=== PATIENT | male | born 1980 | race African-American/Black ===

== ENCOUNTER 2024-05-05 18:14 | Inpatient (IN) | payer MEDICAID, OTHER ==
[~2024-05-05] VITALS: Ht 175.3 cm; Wt 72.3 kg
[~2024-05-05 18:14] MED LIST: CHOL100018 PO; DIVA-112 PO; NICO14T TD; OLAN10TA74 PO
[2024-05-05 21:07] VITALS: BP 128/72; PULSE 72; RESP 18; TEMP 98.2; O2SAT 98
[2024-05-05] MEDS ORDERED: PNEUMOCOCCAL VACCINE POLYVALENT 0.5 ML SYRINGE [PPSV23] IM. ONE (21:30)
[2024-05-06 08:17] VITALS: BP 136/70; PULSE 60; RESP 18; TEMP 97.9; O2SAT 100
[2024-05-06] MEDS ORDERED: CloNIDine HCL 0.1 MG TABLET PO PRN (09:30)
[2024-05-06] MEDS ORDERED: IBUPROFEN 400 MG TABLET PO PRN (09:30)
[2024-05-06] MEDS ORDERED: MAGNESIUM HYDROXIDE SUSPENSION 30 ML UDCUP PO PRN (09:30)
[2024-05-06] MEDS ORDERED: ACETAMINOPHEN 325 MG TABLET PO PRN (09:30)
[2024-05-06] MEDS ORDERED: GuaiFENesin/D-METHORPHAN [SUGAR-FREE] 200-20MG/10 ML SYRUP UDCUP PO PRN (09:30)
[2024-05-06] MEDS ORDERED: ONDANSETRON 4 MG TABLET PO PRN (09:30)
[2024-05-06] MEDS ORDERED: NICOTINE 14 MG/24 HOUR PATCH TD PRN (09:30)
[2024-05-06] MEDS ORDERED: DOCUSATE SODIUM 100 MG CAPSULE PO PRN (09:30)
[2024-05-06] MEDS ORDERED: ALBUTEROL SULFATE HFA 90 MCG/PUFF 8 GM INHALER IH PRN (09:30)
[2024-05-06] MEDS ORDERED: LOPERAMIDE HCL 2 MG CAPSULE PO PRN (09:30)
[2024-05-06] MEDS ORDERED: PETROLATUM,WHITE 28 GM JELLY TP PRN (09:30)
[2024-05-06] MEDS: BACITRACIN 28 GM OINTMENT TP SCH (12:20)
[2024-05-06] MEDS: OLANZapine 10 MG TABLET PO SCH (20:03)
[2024-05-06] MEDS: DIVALPROEX SODIUM 500 MG DR TABLET PO SCH (20:03)
[2024-05-06 20:06] VITALS: BP 123/72; PULSE 75; RESP 16; TEMP 98.6; O2SAT 99
[2024-05-07 08:57] VITALS: BP 108/73; PULSE 68; RESP 13; TEMP 96.4; O2SAT 100
[2024-05-07 20:04] VITALS: BP 100/60; PULSE 68; RESP 17; TEMP 97.8; O2SAT 97
[2024-05-08 08:04] VITALS: BP 137/74; PULSE 62; RESP 16; TEMP 97.9; O2SAT 100
[2024-05-08 09:27] LABS: APPEARANCE,URINE CLEAR (CLEAR); BILIRUBIN,URINE NEGATIVE (NEGATIVE); COLOR,URINE LIGHT YELLOW (YELLOW); GLUCOSE, URINE (UA) NEGATIVE (NEGATIVE); KETONES,URINE NEGATIVE (NEGATIVE); LEUKOCYTE ESTERASE ,URINE NEGATIVE (NEGATIVE); NITRATE,URINE NEGATIVE (NEGATIVE); OCCULT BLOOD,URINE NEGATIVE (NEGATIVE); PROTEIN,URINE NEGATIVE (NEGATIVE); SPECIFIC GRAVITIY, URINE 1.013 (1.003-1.030); UROBILINOGEN,URINE <=1.0 mg/dL (<=1.0)
[2024-05-08 09:58] LABS: ALCOHOL, URINE DRUG SCREEN NEGATIVE (NEGATIVE); AMPHET/METH SCREEN,URINE NEGATIVE (NEGATIVE); BARBITURATE SCREEN, URINE NEGATIVE (NEGATIVE); BENZODIAZEPINES SCREEN,URINE NEGATIVE (NEGATIVE); CANNABINOID SCREEN,URINE NEGATIVE (NEGATIVE); COCAINE SCREEN,URINE POSITIVE (NEGATIVE); METHADONE SCREEN, URINE NEGATIVE (NEGATIVE); OPIATE SCREEN,URINE NEGATIVE (NEGATIVE); PHENCYCLIDINE SCREEN,URINE NEGATIVE (NEGATIVE)
[2024-05-08 20:01] VITALS: BP 116/59; PULSE 80; RESP 16; TEMP 97.1; O2SAT 97
[2024-05-09 08:21] VITALS: BP 108/68; PULSE 73; RESP 19; TEMP 97.9; O2SAT 100
[2024-05-09] MEDS: MULTIVITAMINS WITH MINERALS, THERAPEUTIC TABLET PO SCH (08:41)
[2024-05-09 20:24] VITALS: BP 118/79; PULSE 80; RESP 16; TEMP 98.2; O2SAT 100
[2024-05-10 08:21] LABS: HEMOGLOBIN A1C 5.6 % (3.8-5.6)
[2024-05-10 08:33] VITALS: BP 123/77; PULSE 73; RESP 19; TEMP 97.6; O2SAT 99
[2024-05-10 08:33] LABS: ALCOHOL, BLOOD (SERUM) < 3 mg/dL (0-10)
[2024-05-10 08:34] LABS: ALANINE AMINOTRANSFERASE 13 U/L (12-78); ALKALINE PHOSPHATASE 68 U/L (46-116); ANION GAP 7 mmol/L (8-16); ASPARTATE AMINOTRANSFERASE 14 U/L (15-37); BILIRUBIN,TOTAL 0.1 mg/dL (0.1-1.0); CALCIUM, TOTAL 8.6 mg/dL (8.8-10.5); CARBON DIOXIDE 29 mmol/L (22-29); CHLORIDE 103 mmol/L (98-107); CHOL/HDL RATIO 2.7 (4.2-7.3); CHOLESTEROL 133 mg/dL (131-200); CREATININE 0.42 mg/dL (0.60-1.30); FREE T4 (FREE THYROXINE) 0.74 ng/dL (0.76-1.46); GLOMERULAR FILTR. RATE CALC > 60 mL/min (>60); GLUCOSE,RANDOM 82 mg/dL (70-110); HDL CHOLESTEROL 49 mg/dL (40-60); LDL CHOL (CALC.) 80 mg/dL (0-130); POTASSIUM 4.3 mmol/L (3.5-5.1); SODIUM SERUM 139 mmol/L (136-145); T4 (THYROXINE) 6.6 mcg/dL (4.7-13.3); THYROID STIMULATING HORMONE 1.16 uIU/mL (0.36-3.74); TOTAL PROTEIN, SERUM 7.1 g/dL (6.4-8.2); TRIGLYCERIDES 22 mg/dL (15-150); UREA NITROGEN, BLOOD 12 mg/dL (7-18); VALPROIC ACID 68 mcg/mL (50-100)
[2024-05-10 20:38] VITALS: BP 111/76; PULSE 93; RESP 16; TEMP 97.2; O2SAT 99
[2024-05-10] MEDS: MAG HYDROX/ALUMINUM HYD/SIMETH ES 30 ML SUSPENSION UDCUP PO PRN (23:28)
[2024-05-11 08:16] VITALS: BP 120/79; PULSE 80; RESP 19; TEMP 97.7; O2SAT 99
[2024-05-11 20:50] VITALS: BP 122/78; PULSE 88; RESP 18; TEMP 97.6; O2SAT 97
[2024-05-12 08:06] VITALS: BP 111/69; PULSE 67; RESP 18; TEMP 96.8; O2SAT 100
[2024-05-12 20:00] VITALS: BP 108/64; PULSE 88; RESP 16; TEMP 98; O2SAT 99
[2024-05-13] MEDS: LORazepam 2 MG TABLET PO PRN (03:37)
[2024-05-13 08:23] VITALS: BP 138/87; PULSE 97; RESP 17; TEMP 98.2; O2SAT 100
[2024-05-13 20:27] VITALS: BP 122/82; PULSE 65; RESP 16; TEMP 98.1; O2SAT 99
[2024-05-14 08:27] VITALS: BP 106/63; PULSE 86; RESP 18; TEMP 97.8; O2SAT 100
[2024-05-15 08:37] VITALS: BP 108/59; PULSE 69; RESP 19; TEMP 98.1; O2SAT 100
[2024-05-15 20:39] VITALS: BP 111/64; PULSE 75; RESP 18; TEMP 97.8
[2024-05-16 08:23] VITALS: BP 119/79; PULSE 97; RESP 19; TEMP 97.7; O2SAT 100
[2024-05-16 20:30] VITALS: BP 113/72; PULSE 81; RESP 18; TEMP 98.2; O2SAT 100
[2024-05-16] MEDS: HALOPERIDOL 5 MG TABLET PO PRN (21:18)
[2024-05-17 08:34] VITALS: BP 100/72; PULSE 68; RESP 18; TEMP 98; O2SAT 100
[2024-05-17 20:38] VITALS: BP 100/60; PULSE 80; RESP 20; TEMP 98; O2SAT 100
[2024-05-18 08:12] VITALS: BP 100/60; PULSE 73; RESP 16; TEMP 98; O2SAT 97
[2024-05-18] MEDS: HALOPERIDOL DECANOATE 100 MG/ML VIAL IM SCH (13:08)
[2024-05-18 20:00] VITALS: BP 117/67; PULSE 90; RESP 17; TEMP 98.4; O2SAT 98
[2024-05-19 04:42] VITALS: BP 126/82; PULSE 82; RESP 17; TEMP 98.3; O2SAT 98
[2024-05-19 08:49] VITALS: BP 107/65; PULSE 80; RESP 17; TEMP 97.9; O2SAT 99
[2024-05-20 08:50] VITALS: BP 107/60; PULSE 81; RESP 17; TEMP 98.7; O2SAT 100
[2024-05-20 20:22] VITALS: BP 110/68; PULSE 79; RESP 18; TEMP 97.5; O2SAT 99
[2024-05-21 08:32] VITALS: BP 116/70; PULSE 80; RESP 18; TEMP 97.6; O2SAT 99
[2024-05-21 20:58] VITALS: BP 114/69; PULSE 84; RESP 16; TEMP 97.8; O2SAT 98
[2024-05-21] MEDS: ZOLPIDEM TARTRATE 10 MG TABLET PO PRN (21:05)
[2024-05-22 08:14] VITALS: BP 109/65; PULSE 69; RESP 17; TEMP 97.7; O2SAT 97
[2024-05-22 20:00] VITALS: BP 125/79; PULSE 92; RESP 16; TEMP 98.2; O2SAT 99
[2024-05-23 08:26] VITALS: BP 120/85; PULSE 73; RESP 17; TEMP 97.7; O2SAT 98
[2024-05-23] MEDS ORDERED: PNEUMOCOCCAL VACCINE POLYVALENT 0.5 ML SYRINGE [PPSV23] IM. ONE (11:30)
[2024-05-23 20:45] VITALS: BP 126/83; PULSE 84; RESP 16; TEMP 97.1; O2SAT 99
[2024-05-24 09:14] VITALS: BP 110/62; PULSE 78; RESP 17; TEMP 98.5; O2SAT 100
[2024-05-24 21:01] VITALS: BP 134/74; PULSE 90; RESP 18; TEMP 98.2
[2024-05-25 08:18] VITALS: BP 126/79; PULSE 89; RESP 19; TEMP 97.5; O2SAT 100
[2024-05-25 20:00] VITALS: BP 115/80; PULSE 87; RESP 17; TEMP 98.2; O2SAT 99
[2024-05-26 08:17] VITALS: BP 141/73; PULSE 75; RESP 17; TEMP 97.5; O2SAT 100
[2024-05-26 21:54] VITALS: BP 103/72; PULSE 81; RESP 18; TEMP 98.1; O2SAT 100
[2024-05-27 08:20] VITALS: BP 140/90; PULSE 91; RESP 19; TEMP 97.6; O2SAT 100
[2024-05-27 20:42] VITALS: BP 102/56; PULSE 83; RESP 17; TEMP 98; O2SAT 99
[2024-05-28 08:17] VITALS: BP 133/89; PULSE 88; RESP 18; TEMP 97.4; O2SAT 100
[2024-05-28 20:46] VITALS: BP 117/75; PULSE 18; RESP 18; TEMP 98.3; O2SAT 97
[2024-05-29 09:09] VITALS: BP 101/60; PULSE 62; RESP 16; TEMP 97.6; O2SAT 100
[2024-05-29 20:48] VITALS: BP 121/78; PULSE 82; RESP 16; TEMP 98.4; O2SAT 98
[2024-05-30 08:43] VITALS: BP 107/68; PULSE 63; RESP 18; TEMP 98.4; O2SAT 100
[2024-05-30 20:31] VITALS: BP 111/72; PULSE 87; RESP 17; TEMP 98.2; O2SAT 99
[2024-05-31 08:37] VITALS: BP 117/66; PULSE 73; RESP 18; TEMP 98.5; O2SAT 100
[2024-05-31 20:33] VITALS: BP 135/77; PULSE 18; RESP 18; TEMP 97.4; O2SAT 97
[2024-06-01 08:24] VITALS: BP 97/61; PULSE 63; RESP 16; TEMP 98; O2SAT 100
[2024-06-01 21:57] VITALS: BP 117/73; PULSE 77; RESP 18; TEMP 97.9
[2024-06-02 15:35] VITALS: BP 111/75; PULSE 95; RESP 17; TEMP 97.8; O2SAT 97
[2024-06-02 20:07] VITALS: BP 117/78; PULSE 82; RESP 18; TEMP 97.4; O2SAT 97
[2024-06-03] MEDS: TUBERCULIN, PURIFIED PROTEIN DERIVATIVE 5 TU/0.1 ML SYRINGE ID ONE (16:54)
[2024-06-03 17:11] VITALS: BP 116/78; PULSE 83; RESP 18; TEMP 98; O2SAT 98
[2024-06-03 20:33] VITALS: BP 100/60; PULSE 70; RESP 17; TEMP 98.2; O2SAT 99
[2024-06-04 10:30] VITALS: BP 111/72; PULSE 73; RESP 17; TEMP 97; O2SAT 100
[2024-06-04 21:00] VITALS: BP 115/60; PULSE 84; RESP 18; TEMP 98.1; O2SAT 98
[2024-06-05 08:30] VITALS: BP 118/72; PULSE 63; RESP 18; TEMP 98; O2SAT 97
[2024-06-05 21:09] VITALS: BP 148/80; PULSE 100; RESP 18; TEMP 97.4; O2SAT 98
[2024-06-06 08:13] VITALS: BP 118/78; PULSE 70; RESP 18; TEMP 98; O2SAT 99
[2024-06-06 20:22] VITALS: BP 116/72; PULSE 64; RESP 18; TEMP 98.1; O2SAT 99
[2024-06-07 08:29] VITALS: BP 113/65; PULSE 69; RESP 19; TEMP 98.1; O2SAT 98
[2024-06-07 21:11] VITALS: BP 125/83; PULSE 82; RESP 18; TEMP 97.6; O2SAT 97
[2024-06-08 08:20] VITALS: BP 106/61; PULSE 64; RESP 17; TEMP 98.8; O2SAT 98
[2024-06-08] MEDS: ETHYL ALCOHOL 62% ANTISEPTIC NASAL SANITIZER 0.6 ML AMPUL NASAL SCH (09:00)
[2024-06-08] MEDS ORDERED: ETHYL ALCOHOL 62% ANTISEPTIC NASAL SANITIZER 0.6 ML AMPUL NASAL SCH (09:00)
[2024-06-08 20:00] VITALS: BP 115/70; PULSE 86; RESP 18; TEMP 98.9; O2SAT 98
[2024-06-08] MEDS: CHLORHEXIDINE GLUCONATE 2% TOWELETTE [2'S/6'S] TP SCH (21:39)
[2024-06-08] MEDS ORDERED: CHLORHEXIDINE GLUCONATE 2% TOWELETTE [2'S/6'S] TP SCH (22:00)
[2024-06-09 08:31] VITALS: BP 106/61; PULSE 63; RESP 16; TEMP 97.4; O2SAT 100
[2024-06-09 20:49] VITALS: BP 117/70; PULSE 82; RESP 18; TEMP 97.2; O2SAT 100
[2024-06-10 08:24] VITALS: BP 110/69; PULSE 70; RESP 17; TEMP 98.4; O2SAT 98
[2024-06-10 21:26] VITALS: BP 124/86; PULSE 82; RESP 18; TEMP 97.6; O2SAT 99
[2024-06-11 08:53] VITALS: BP 114/59; PULSE 63; RESP 18; TEMP 97.8; O2SAT 98
[2024-06-11 20:49] VITALS: BP 120/83; PULSE 80; RESP 16; TEMP 97.9; O2SAT 98
[2024-06-12 21:01] VITALS: BP 141/85; PULSE 83; RESP 18; TEMP 97.8; O2SAT 98
[2024-06-13 20:52] VITALS: BP 129/78; PULSE 76; RESP 18; TEMP 97.2; O2SAT 95
[2024-06-14 09:26] VITALS: BP 128/86; PULSE 76; RESP 17; TEMP 97.7; O2SAT 100
[2024-06-14 20:21] VITALS: BP 102/62; PULSE 75; RESP 18; TEMP 98.2; O2SAT 98
[2024-06-15 09:19] VITALS: BP 104/66; PULSE 62; RESP 17; TEMP 97.8; O2SAT 99
[2024-06-15 20:32] VITALS: BP 129/79; PULSE 98; RESP 18; TEMP 98.7; O2SAT 98
[2024-06-16 09:11] VITALS: BP 117/67; PULSE 61; RESP 17; TEMP 97.8; O2SAT 98
[2024-06-16 20:35] VITALS: BP 98/56; PULSE 73; RESP 18; TEMP 98.5; O2SAT 99
[2024-06-17] MEDS ORDERED: HALOPERIDOL DECANOATE 100 MG/ML VIAL IM SCH (09:00)
[2024-06-17 09:08] VITALS: BP 100/60; PULSE 62; RESP 16; TEMP 97; O2SAT 100
[2024-06-17 20:20] VITALS: BP 130/69; PULSE 66; RESP 18; TEMP 97.5; O2SAT 98
[2024-06-18 08:29] VITALS: BP 113/67; PULSE 78; RESP 17; TEMP 97.2; O2SAT 99
[2024-06-18 21:30] VITALS: BP 103/57; PULSE 74; RESP 17; TEMP 97.7; O2SAT 98
[2024-06-19 08:46] VITALS: BP 103/59; PULSE 86; RESP 16; TEMP 97.9; O2SAT 98
[2024-06-19 20:00] VITALS: BP 113/66; PULSE 89; RESP 17; TEMP 97.8; O2SAT 98
[2024-06-20 08:30] VITALS: BP 111/62; PULSE 74; RESP 18; TEMP 97.7; O2SAT 100
[2024-06-20 22:10] VITALS: BP 100/54; PULSE 73; RESP 17; TEMP 97.2; O2SAT 98
[2024-06-21 08:35] VITALS: BP 105/63; PULSE 69; RESP 19; TEMP 97.9; O2SAT 100
[2024-06-22 08:22] VITALS: BP 110/71; PULSE 67; RESP 17; TEMP 97.8; O2SAT 97
[2024-06-22 20:22] VITALS: BP 114/65; PULSE 75; RESP 18; TEMP 98.1; O2SAT 100
[2024-06-23 08:27] VITALS: BP 127/79; PULSE 78; RESP 19; TEMP 97.6; O2SAT 99
[2024-06-23 21:34] VITALS: BP 113/61; PULSE 72; RESP 18; TEMP 97.2; O2SAT 99
[2024-06-24 08:19] VITALS: BP 110/62; PULSE 70; RESP 16; TEMP 97; O2SAT 98
[2024-06-24 20:29] VITALS: BP 122/90; PULSE 85; RESP 18; TEMP 98; O2SAT 100
[2024-06-25 13:02] VITALS: BP 100/63; PULSE 75; RESP 16; TEMP 98; O2SAT 100
[2024-06-25 21:14] VITALS: BP 133/95; PULSE 83; RESP 19; TEMP 97.2; O2SAT 96
[2024-06-26 15:26] VITALS: BP 140/78; PULSE 84; RESP 18; TEMP 96.3; O2SAT 97
[2024-06-26 20:36] VITALS: BP 124/87; PULSE 92; RESP 18; TEMP 98; O2SAT 97
[2024-06-27 08:27] VITALS: BP 118/80; PULSE 99; RESP 18; TEMP 98.1; O2SAT 97
[2024-06-27 20:19] VITALS: BP 148/91; PULSE 85; RESP 18; TEMP 96.4; O2SAT 99
[2024-06-28 08:13] VITALS: BP 120/80; PULSE 80; RESP 18; TEMP 98.2; O2SAT 97
[2024-06-28 21:20] VITALS: BP 101/69; PULSE 69; RESP 18; TEMP 98.4; O2SAT 96
[2024-06-29 08:37] VITALS: BP 116/82; PULSE 75; RESP 18; TEMP 98; O2SAT 98
[2024-06-29 20:19] VITALS: BP 119/91; PULSE 99; RESP 17; TEMP 97.4; O2SAT 96
[2024-06-30 09:09] VITALS: BP 110/63; PULSE 80; RESP 18; TEMP 97.6; O2SAT 97
[2024-06-30 20:25] LABS: GLUCOMETER DEV NAME(LOC) BV2S.; GLUCOSE,POINT OF CARE 98 MG/DL (70-110)
[2024-06-30 20:30] VITALS: BP 130/83; PULSE 89; RESP 18; TEMP 98.4; O2SAT 96
[2024-07-01 08:41] VITALS: BP 110/59; PULSE 97; RESP 18; TEMP 98.1; O2SAT 100
[2024-07-01 20:20] VITALS: BP 141/90; PULSE 86; RESP 18; TEMP 97.4; O2SAT 96
[2024-07-02 08:52] VITALS: BP 118/77; PULSE 68; RESP 16; TEMP 97.7; O2SAT 99
[2024-07-02 19:30] VITALS: BP 113/69; PULSE 83; RESP 17; TEMP 98.1; O2SAT 99
[2024-07-02 20:00] VITALS: BP 113/69; PULSE 83; RESP 17; TEMP 98.1; O2SAT 99
[2024-07-03 08:00] VITALS: BP 125/63; PULSE 75; RESP 17; TEMP 97.8; O2SAT 96
[2024-07-03 08:00] LABS: GLUCOMETER DEV NAME(LOC) POC.BV; POC SARS-COV2 AG, FIA NEGATIVE (NEGATIVE)
[2024-07-03] MEDS ORDERED: HALO100V36 IM (08:06)
[2024-07-03] MEDS ORDERED: OLAN5TAB30 PO ×2 (08:07→08:09)
== END 2024-07-03 17:51 | DRG 750 ==
LOC: B2S 19:09
PROVIDERS: ADMIT Psychiatry & Neurology Child & Adolescent Psychiatry; ATTEND Psychiatry & Neurology Child & Adolescent Psychiatry
PROC: GZHZZZZ Group Psychotherapy (ICD-10-PCS; principal; 2024-05-08)
PROC: GZ56ZZZ Individual Psychotherapy, Supportive (ICD-10-PCS; 2024-05-08)
PROC: GZ58ZZZ Individual Psychotherapy, Cognitive-Behavioral (ICD-10-PCS; 2024-05-08)
DX: F20.0 Paranoid schizophrenia (principal); F10.10 Alcohol abuse, uncomplicated; F14.90 Cocaine use, unspecified, uncomplicated; Z20.822 Contact with and (suspected) exposure to COVID-19; I10 Essential (primary) hypertension; J44.9 Chronic obstructive pulmonary disease, unspecified; K21.9 Gastro-esophageal reflux disease without esophagitis; Z88.8 Allergy status to other drugs, medicaments and biological substances; Z91.013 Allergy to seafood
CPT/HCPCS: 71045; 80053; 80061; 80164; 80307; 81003; 82962; 83036; 84436; 84439; 84443; 86592; 87081; 87481; G0480; J1631; 36415-L1; 36415-TC